=== PATIENT | female | born 1990 | race Caucasian/White ===

== ENCOUNTER 2017-10-24 01:15 | Emergency (ER) | payer BC ==
[2017-10-24 01:24] VITALS: BP 133/87; PULSE 104; RESP 18; TEMP 98.2
[2017-10-24] MEDS ORDERED: KETOROLAC 30 MG/ML 1 ML VIAL IM STA (02:19)
[2017-10-24] MEDS ORDERED: ACET/COD 300 MG/30 MG STARTER PACK 6 TAB BTL PO STA (02:19)
[2017-10-24] MEDS ORDERED: PENICILLIN VK 500MG STARTER 4 TAB BTL PO STA (02:20)
--- NOTE | 2017-10-24 02:21 | ED ---
ENT HPI - General Chief complaint: ENT Stated complaint: ent Time Seen by Provider: 10/24/17 01:47 Source: patient Mode of arrival: ambulatory Limitations: no limitations - History of Present Illness Initial comments: 27-year-old female patient presented to the emergency department today for evaluation of right sided facial and ear pain. Patient states that this started a few days ago. States that she did see her primary care physician who told her she most likely had an ear infection. Patient states that she does have a broken tooth of the right lower dentition. She states that the pain is radiating up to her ear and down into her neck. She states she has been taking ibuprofen but has not been helping. She denies any fevers or chills with this. Denies any nausea or vomiting. She denies any difficulty swallowing or any trismus. Patient denies any recent rash, shortness breath, chest pain, abdominal pain, diarrhea, constipation, back pain, numbness, tingling, weakness , hematuria, dysuria, urinary urgency, urinary frequency, visual changes, or any other complaints. - Related Data Previous Rx's Medication Instructions Recorded Metoclopramide HCl [Reglan] 5 mg PO Q6H PRN #24 tablet 03/10/15 Omeprazole [PriLOSEC] 20 mg PO DAILY #30 cap 03/10/15 Acetaminophen-Codeine 300-30mg 1 tab PO Q6H PRN #12 tablet 10/24/17 [Tylenol #3] Ibuprofen [Motrin] 600 mg PO Q8HR PRN #30 tab 10/24/17 Penicillin V Potassium [Pen Vee K] 500 mg PO Q6H #40 tablet 10/24/17 Allergies Allergy/AdvReac Type Severity Reaction Status Date / Time No Known Allergies Allergy Verified 10/24/17 01:24 Review of Systems ROS Statement: Those systems with pertinent positive or pertinent negative responses have been documented in the HPI. ROS Other: All systems not noted in ROS Statement are negative. 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 Vital signs upon presentation are temperature 98.2F, pulse 104, respirations 18, blood pressure 133/87, pulse ox 100% on room air.) Eye exam: Present: normal appearance, PERRL, EOMI. Absent: scleral icterus, conjunctival injection, periorbital swelling ENT exam: Present: normal oropharynx, mucous membranes moist, TM's normal bilaterally, other (Patient has a broken tooth #30. No evidence of surrounding erythema or gingival hyperplasia. No evidence of drainable abscess.). Absent: normal exam Neck exam: Present: normal inspection. Absent: tenderness, meningismus, lymphadenopathy Respiratory exam: Present: normal lung sounds bilaterally. Absent: respiratory distress, wheezes, rales, rhonchi, stridor Cardiovascular Exam: Present: regular rate, normal rhythm, normal heart sounds. Absent: systolic murmur, diastolic murmur, rubs, gallop, clicks GI/Abdominal exam: Present: soft, normal bowel sounds. Absent: distended, tenderness, guarding, rebound, rigid Neurological exam: Present: alert, oriented X3, CN II-XII intact Psychiatric exam: Present: normal affect, normal mood Skin exam: Present: warm, dry, intact, normal color. Absent: rash Course Vital Signs 10/24/17 01:19 Temperature 98.2 F Pulse Rate 104 H Respiratory 18 Rate Blood Pressure 133/87 O2 Sat by Pulse 100 Oximetry Medical Decision Making - Medical Decision Making 27-year-old female patient presented to the emergency department today for evaluation of right-sided facial pain that radiates into her ear into her neck. Physical examination did reveal a broken tooth #30. Overall poor dentition. She had no evidence of drainable abscess. Patient states it did feel like her teeth were throbbing. Tympanic membranes appeared to be within normal limits. We'll discharge patient with a prescription for Pen-Vee K, Tylenol No. 3, instructions to continue anti-inflammatories. She is instructed to follow-up with the dentist as soon as possible. Return parameters discussed in detail. She verbalizes understanding and agrees this plan. Disposition Clinical Impression: Pain, dental, Ear pain Disposition: HOME SELF-CARE Condition: Good Instructions: Earache (ED), Toothache (ED) Additional Instructions: Take medications as directed. Follow-up with dentistry as soon as possible. Follow-up with your primary care physician for recheck in 1-2 days. Return here immediately for any new, worsening, or concerning symptoms. Prescriptions: Acetaminophen-Codeine 300-30mg [Tylenol #3] 1 tab PO Q6H PRN #12 tablet PRN Reason: Pain Ibuprofen [Motrin] 600 mg PO Q8HR PRN #30 tab PRN Reason: Pain Penicillin V Potassium [Pen Vee K] 500 mg PO Q6H #40 tablet Is patient prescribed a controlled substance at d/c from ED?: Yes When asked, does pt state using other controlled substances?: No Referrals: Jn No MD [Primary Care Provider] - 1-2 days Time of Disposition: 02:21
== END 2017-10-24 02:38 | disposition home or self-care (01) ==
LOC: EC 01:15
DX: S02.5XXA Fracture of tooth (traumatic), initial encounter for closed fracture (principal); H92.01 Otalgia, right ear; R51 Headache; Z87.891 Personal history of nicotine dependence; Z90.49 Acquired absence of other specified parts of digestive tract
CPT/HCPCS: 99283; 96372; J1885